=== PATIENT | male | born 1980 | race Caucasian/White ===

== ENCOUNTER 2017-08-03 16:08 | Emergency (ER) | payer SELFPAY ==
[2017-08-03 16:21] VITALS: BMI 25.8
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
[2017-08-04 01:40] VITALS: O2SAT 99
[2017-08-04 05:35] VITALS: BP 105/54; PULSE 86; RESP 20; TEMP 98.4
== END 2017-08-04 05:55 | disposition home or self-care (01) ==
LOC: C.ER 16:08
DX: F10.129 Alcohol abuse with intoxication, unspecified (principal); Y90.9 Presence of alcohol in blood, level not specified
CPT/HCPCS: 82948; 99285; G0480

== ENCOUNTER 2017-09-21 14:44 | Emergency (ER) | payer OTHER ==
[2017-09-21 14:44] VITALS: BMI 25.8
[2017-09-21 14:54] VITALS: BP 138/84; PULSE 96; RESP 18; TEMP 98.2; O2SAT 96
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
== END 2017-09-21 15:28 | disposition home or self-care (01) ==
LOC: C.ER 14:44
DX: F10.10 Alcohol abuse, uncomplicated (principal); Y90.9 Presence of alcohol in blood, level not specified

== ENCOUNTER 2017-09-21 16:48 | Emergency (ER) | payer OTHER ==
[2017-09-21 16:48] VITALS: BMI 25.8
[2017-09-21 17:05] VITALS: BP 121/78; PULSE 97; TEMP 98.6; O2SAT 97
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
[2017-09-21 19:30] VITALS: RESP 18
== END 2017-09-21 18:55 | disposition home or self-care (01) ==
LOC: C.ER 16:48
DX: F10.10 Alcohol abuse, uncomplicated (principal); Y90.9 Presence of alcohol in blood, level not specified

== ENCOUNTER 2018-03-12 14:45 | Emergency (ER) | payer OTHER ==
[2018-03-12 14:46] VITALS: BMI 25.8
[2018-03-12 15:00] VITALS: TEMP 99.3
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
[2018-03-12 17:20] VITALS: BP 120/78; PULSE 82; RESP 17
[2018-03-12 18:02] VITALS: O2SAT 100
== END 2018-03-12 18:16 | disposition home or self-care (01) ==
LOC: C.ER 14:45
DX: F10.10 Alcohol abuse, uncomplicated (principal)